=== PATIENT | female | born 1990 | race Caucasian/White ===

== ENCOUNTER 2017-07-11 17:10 | Emergency (ER) | payer MEDICAID ==
[2017-07-11 17:45] LABS: Hematocrit 30.8 % (30.3-42.9); Hemoglobin 9.9 gm/dl (10.1-14.3); Mean Corpuscular HGB Conc 32 % (30-34); Mean Corpuscular Hemoglobin 21 pg (28-32); Mean Corpuscular Volume 65 fl (79-97); Platelet Count 312 K/mm3 (140-440); Red Blood Count 4.74 M/mm3 (3.65-5.03); Red Cell Distribution Width 18.4 % (13.2-15.2); White Blood Count 9.7 K/mm3 (4.5-11.0)
--- NOTE | 2017-07-11 17:46 | Emergency Department Report ---
Chief Complaint: Headache Stated Complaint: HEADACHE Time Seen by Provider: 07/11/17 17:45 - HPI History of Present Illness: Patient here with her family report that she is had a headache since last Tuesday that's been ongoing. She said it feels like pressure in her forehead and radiated to the back of her head. Patient states that the lights hurt her high when it worse. She says she gets occasional headache but this headache is persistent. She said she gets some improvement with [id number] medication. Denies any fever or chills. Pain is 4-10 and achy. Denies any nausea or vomiting. Last menstrual cycle was 07/05/2017 - ROS Review of Systems: All systems are negative unless stated in HPI above - Exam Vital Signs: Vital Signs 07/11/17 17:27 Temperature 98.7 F Pulse Rate 78 Respiratory 18 Rate Blood Pressure 123/66 O2 Sat by Pulse 100 Oximetry Physical Exam: Gen.: This is a 26-year-old female well-nourished well-developed in no acute distress. Mini neurological exam: Alert and oriented 3, GCS of 15, normal gait. Speech is clear and fluid. No facial drooping noted. MSE screening note: Focused history and physical exam performed. Due to findings the following was ordered: ED Medical Decision Making - Lab Data Result diagrams: 07/11/17 17:33 - Medical Decision Making MDM: Patient screened by provider in triage area. Appropriate protocol initiated and patient to be seen in main ED by ED Disposition for MSE Condition: Stable
[2017-07-11 18:08] LABS: Anion Gap 17 mmol/L; BUN/Creatinine Ratio 18; Blood Urea Nitrogen 9 mg/dL (7-17); Calcium 9.3 mg/dL (8.4-10.2); Carbon Dioxide 26 mmol/L (22-30); Chloride 100.3 mmol/L (98-107); Glucose 97 mg/dL (65-100); Potassium 4.1 mmol/L (3.6-5.0); Sodium 139 mmol/L (137-145)
[2017-07-11 18:16] LABS: Basophils % (Auto) 0.8 % (0.0-1.8); Eosinophils % (Auto) 3.7 % (0.0-4.3); Hematocrit 31.3 % (30.3-42.9); Hemoglobin 9.6 gm/dl (10.1-14.3); Mean Corpuscular HGB Conc 31 % (30-34); Platelet Count 347 K/mm3 (140-440); Red Blood Count 4.78 M/mm3 (3.65-5.03); Red Cell Distribution Width 18.7 % (13.2-15.2); White Blood Count 11.2 K/mm3 (4.5-11.0)
[2017-07-11 18:32] LABS: Mean Corpuscular Hemoglobin 20 pg (28-32); Mean Corpuscular Volume 66 fl (79-97)
[2017-07-11 18:44] LABS: Bilirubin,Urine NEG (Negative); Blood,Urine NEG (Negative); Ketones,Urine NEG (Negative); Leukocyte Esterase,Urine NEG (Negative); Mucus,Urine 1+ /HPF; Nitrite,Urine NEG (Negative); Protein,Urine <15 mg/dL mg/dL (Negative); RBC,Urine < 1.0 /HPF (0.0-6.0); Urobilinogen,Urine < 2.0 mg/dL (<2.0); WBC,Urine < 1.0 /HPF (0.0-6.0)
[2017-07-11] MEDS ORDERED: TORADOL IM ONE (21:47)
--- NOTE | 2017-07-11 22:05 | Emergency Department Report ---
ED Headache HPI - General Chief Complaint: Headache Stated Complaint: HEADACHE Time Seen by Provider: 07/11/17 17:45 Source: patient Exam Limitations: no limitations - History of Present Illness Initial Comments: 26-year-old female with no significant past medical history asthma presents to the hospital complaints of headache 1 week. It is constant, fluctuating in intensity, alleviated 1 hour after taking Tylenol. Patient denies blurred vision, nausea, vomiting, focal weakness, numbness, fever, or neck pain. Pain is currently rated 3-4/10 in intensity. Allergies/Adverse Reactions: Allergies ampicillin Allergy (Verified 07/11/17 17:33) Unknown Home Medications: Ambulatory Orders Doxycycline [Vibramycin CAP] 100 mg PO Q12HR #14 capsule 07/12/17 Ferrous Sulfate [Iron] 325 mg PO DAILY #30 tablet 07/12/17 Ibuprofen [Motrin] 800 mg PO Q8HR PRN #30 tablet 07/12/17 Pseudoephedrine [Sudafed] 60 mg PO Q6HR PRN #30 tab 07/12/17 traMADol [Ultram 50 MG tab] 50 mg PO Q6HR PRN #20 tablet 07/12/17 ED Review of Systems ROS: Stated complaint: HEADACHE Other details as noted in HPI Comment: All other systems reviewed and negative Other: Constitutional: No fevers chills Eyes: No eye pain visual changes ENT: No ear pain or throat pain Neck: Denies pain Respiratory: Denies cough wheezing shortness of breath Cardiovascular: Denies chest pain, palpitations, syncope GI: Denies abdominal pain, nausea, vomiting, diarrhea : Denies dysuria Musculoskeletal: Denies back pain, joint swelling Skin: Denies rash, lesions, erythema Neurologic: Denies numbness, weakness Psychiatric: Denies suicidal ideation, hallucinations ED Past Medical Hx - Past Medical History Hx Asthma: Yes - Surgical History Past Surgical History?: No - Social History Smoking Status: Never Smoker Substance Use Type: None - Medications Home Medications: Home Medications Medication Instructions Recorded Confirmed Last Taken Type Doxycycline [Vibramycin CAP] 100 mg PO Q12HR #14 capsule 07/12/17 Unknown Rx Ferrous Sulfate [Iron] 325 mg PO DAILY #30 tablet 07/12/17 Unknown Rx Ibuprofen [Motrin] 800 mg PO Q8HR PRN #30 tablet 07/12/17 Unknown Rx Pseudoephedrine [Sudafed] 60 mg PO Q6HR PRN #30 tab 07/12/17 Unknown Rx traMADol [Ultram 50 MG tab] 50 mg PO Q6HR PRN #20 tablet 07/12/17 Unknown Rx ED Physical Exam - General Limitations: Language Barrier - Other Other exam information: General: No limitations, patient is alert in no acute distress Head exam: Atraumatic, normocephalic Eyes exam: Normal appearance, pupils equal reactive to light, extraocular movements intact ENT: Moist mucous membrane, normal oropharynx Neck exam: Normal inspection, full range of motion, no meningismus nontender Respiratory exam: Clear to auscultation bilateral, no wheezes, rales, crackles Cardiovascular: Normal rate and rhythm, normal heart sounds Abdomen: Soft, nondistended, and nontender, with normal bowel sounds, no rebound, or guarding Extremity: Full range of motion normal inspection no deformity Back: Normal Inspection, full range of motion, no tenderness Neurologic: Alert, oriented x3, cranial nerves intact, no motor or sensory deficit Psychiatric: normal affect, normal mood Skin: Warm, dry, intact ED Course Vital Signs 07/11/17 07/11/17 17:27 23:07 Temperature 98.7 F 98.4 F Pulse Rate 78 83 Respiratory 18 18 Rate Blood Pressure 123/66 Blood Pressure 115/72 [Left] O2 Sat by Pulse 100 100 Oximetry - Reevaluation(s) Reevaluation #1: 07/11/17 23:11 Toradol IM provided for pain Reevaluation #2: 07/11/17 23:30 pain improved after meds ED Medical Decision Making - Lab Data Result diagrams: 07/11/17 18:02 07/11/17 17:33 Lab Results 07/11/17 07/11/17 07/11/17 Range/Units 17:33 17:33 18:02 WBC 9.7 11.2 H (4.5-11.0) K/mm3 RBC 4.74 4.78 (3.65-5.03) M/mm3 Hgb 9.9 L 9.6 L (10.1-14.3) gm/dl Hct 30.8 31.3 (30.3-42.9) % MCV 65 L 66 L (79-97) fl MCH 21 L 20 L (28-32) pg MCHC 32 31 (30-34) % RDW 18.4 H 18.7 H (13.2-15.2) % Plt Count 312 347 (140-440) K/mm3 Lymph % (Auto) 25.6 (13.4-35.0) % [place] % (Auto) 6.8 (0.0-7.3) % Eos % (Auto) 3.7 (0.0-4.3) % Baso % (Auto) 0.8 (0.0-1.8) % Lymph # 2.9 (1.2-5.4) K/mm3 [place] # 0.8 (0.0-0.8) K/mm3 Eos # 0.4 (0.0-0.4) K/mm3 Baso # 0.1 (0.0-0.1) K/mm3 Seg Neutrophils % 63.1 (40.0-70.0) % Seg Neutrophils # 7.1 (1.8-7.7) K/mm3 Sodium 139 (137-145) mmol/L Potassium 4.1 (3.6-5.0) mmol/L Chloride 100.3 (98-107) mmol/L Carbon Dioxide 26 (22-30) mmol/L Anion Gap 17 mmol/L BUN 9 (7-17) mg/dL Creatinine 0.5 L (0.7-1.2) mg/dL Estimated GFR > 60 ml/min BUN/Creatinine Ratio 18 % Glucose 97 (65-100) mg/dL Calcium 9.3 (8.4-10.2) mg/dL HCG, Qual (Negative) Urine Color (Yellow) Urine Turbidity (Clear) Urine pH (5.0-7.0) Ur Specific [place] (1.003-1.030) Urine Protein (Negative) mg/dL Urine Glucose (UA) (Negative) mg/dL Urine Ketones (Negative) mg/dL Urine Blood (Negative) Urine Nitrite (Negative) Urine Bilirubin (Negative) Urine Urobilinogen (<2.0) mg/dL Ur Leukocyte Esterase (Negative) Urine WBC (Auto) (0.0-6.0) /HPF Urine RBC (Auto) (0.0-6.0) /HPF U Epithel Cells (Auto) (0-13.0) /HPF Urine Mucus /HPF 07/11/17 07/11/17 Range/Units 18:02 18:32 WBC (4.5-11.0) K/mm3 RBC (3.65-5.03) M/mm3 Hgb (10.1-14.3) gm/dl Hct (30.3-42.9) % MCV (79-97) fl MCH (28-32) pg MCHC (30-34) % RDW (13.2-15.2) % Plt Count (140-440) K/mm3 Lymph % (Auto) (13.4-35.0) % [place] % (Auto) (0.0-7.3) % Eos % (Auto) (0.0-4.3) % Baso % (Auto) (0.0-1.8) % Lymph # (1.2-5.4) K/mm3 [place] # (0.0-0.8) K/mm3 Eos # (0.0-0.4) K/mm3 Baso # (0.0-0.1) K/mm3 Seg Neutrophils % (40.0-70.0) % Seg Neutrophils # (1.8-7.7) K/mm3 Sodium (137-145) mmol/L Potassium (3.6-5.0) mmol/L Chloride (98-107) mmol/L Carbon Dioxide (22-30) mmol/L Anion Gap mmol/L BUN (7-17) mg/dL Creatinine (0.7-1.2) mg/dL Estimated GFR ml/min BUN/Creatinine Ratio % Glucose (65-100) mg/dL Calcium (8.4-10.2) mg/dL HCG, Qual Negative (Negative) Urine Color Yellow (Yellow) Urine Turbidity Clear (Clear) Urine pH 5.0 (5.0-7.0) Ur Specific [place] 1.024 (1.003-1.030) Urine Protein <15 mg/dl (Negative) mg/dL Urine Glucose (UA) Neg (Negative) mg/dL Urine Ketones Neg (Negative) mg/dL Urine Blood Neg (Negative) Urine Nitrite Neg (Negative) Urine Bilirubin Neg (Negative) Urine Urobilinogen < 2.0 (<2.0) mg/dL Ur Leukocyte Esterase Neg (Negative) Urine WBC (Auto) < 1.0 (0.0-6.0) /HPF Urine RBC (Auto) < 1.0 (0.0-6.0) /HPF U Epithel Cells (Auto) 2.0 (0-13.0) /HPF Urine Mucus 1+ /HPF - Radiology Data Radiology results: report reviewed CT head: No acute findings. Chronic bilateral sinusitis. Mucosal thickening involving the left frontal, bilateral ethmoid, and right sphenoid sinus. Adenoid hypertrophy. - Medical Decision Making Patient has relief in pain after one IM shot of Toradol. She will be treated with antibiotics for sinusitis and decongestions preoperative follow-up will be encouraged. She will be prescribed iron pills for microcytic anemia - Differential Diagnosis migraine, tension headache, cluster headache, ICH, intracranial mass Critical Care Time: No Critical care attestation.: If time is entered above; I have spent that time in minutes in the direct care of this critically ill patient, excluding procedure time. ED Disposition Clinical Impression: Chronic sinusitis, Headache Disposition: - TO HOME OR SELFCARE Is pt being admited?: No Does the pt Need Aspirin: No Condition: Stable Instructions: Sinusitis (ED), Anemia (ED) Prescriptions: Doxycycline [Vibramycin CAP] 100 mg PO Q12HR #14 capsule Ferrous Sulfate [Iron] 325 mg PO DAILY #30 tablet Ibuprofen [Motrin] 800 mg PO Q8HR PRN #30 tablet PRN Reason: Pain Pseudoephedrine [Sudafed] 60 mg PO Q6HR PRN #30 tab PRN Reason: Nasal Congestion traMADol [Ultram 50 MG tab] 50 mg PO Q6HR PRN #20 tablet PRN Reason: Pain Referrals: LISA VASQUEZ MD [Staff Physician] - 3-5 Days (ENT doctor ) [facility] [Provider Group] - 3-5 Days (primary care doctor ) Print Language: MALAY
[2017-07-11 23:08] VITALS: BP 115/72
--- NOTE | 2017-07-11 23:13 | Cat Scan Report ---
FINAL REPORT PROCEDURE: CT HEAD/BRAIN WO CON TECHNIQUE: Computerized tomography of the head was performed without contrast material. HISTORY: headaches x 1 week COMPARISON: No prior studies are available for comparison. FINDINGS: Skull and scalp: Normal. Paranasal sinuses: Mucosal thickening is noted involving left frontal, bilateral ethmoid and right sphenoid sinuses.. Ventricles and subarachnoid spaces: Normal. Cerebrum: No evidence of hemorrhage, acute infarction or mass . Cerebellum and brainstem: No evidence of hemorrhage, acute infarction or mass. Vasculature: Normal. Comments: Adenoid hypertrophy is noted. IMPRESSION: No acute intracranial abnormality Chronic bilateral sinusitis Adenoid hypertrophy
== END 2017-07-12 00:33 | disposition home or self-care (01) ==
LOC: ED 17:10
DX: J32.9 Chronic sinusitis, unspecified (principal); R51 Headache; J45.909 Unspecified asthma, uncomplicated; Z88.1 Allergy status to other antibiotic agents
CPT/HCPCS: 36415; 70450; 80048; 81001; 84703; 85025; 85027; 96372; 99284; J1885